=== PATIENT | female | born 1935 | race Asian ===

== ENCOUNTER 2017-04-28 06:55 | Day surgery (SDC) | payer MEDICARE, OTHER ==
[~2017-04-28] VITALS: Ht 148.6 cm; Wt 47.7 kg
[~2017-04-28 06:55] MED LIST: ALEN10 PO; ASPI81 PO; ATOR10TA84 PO; METF500T4 PO; OS500 PO; VALS160T2 PO; VITAD400 PO
[2017-04-28] MEDS ORDERED: HYALURONATE SODIUM 12 MG/ML 0.8 ML SYRINGE IO ONE (06:56)
[2017-04-28] MEDS ORDERED: TETRACAINE HCL VISCOUS 0.5% 5 ML OPHTHALMIC SOLUTION OS ONE (06:56)
[2017-04-28] MEDS ORDERED: DEXAMETHASONE SOD PHOS 4 MG/ML VIAL IVP ONE (06:56)
[2017-04-28] MEDS ORDERED: MIDAZOLAM HCL 2 MG/2 ML VIAL IVP ONE (06:56)
[2017-04-28] MEDS ORDERED: FentaNYL CITRATE-PF 100 MCG/2 ML VIAL IVP ONE (06:56)
[2017-04-28] MEDS ORDERED: EPINEPHrine 1:1,000 [1 MG/ML] AMP IM ONE (06:56)
[2017-04-28] MEDS ORDERED: POVIDONE-IODINE 10% 15 ML SOLUTION UD TP ONE (06:56)
[2017-04-28] MEDS ORDERED: HYALURONATE SOD/CHONDROITIN SOD 0.5 ML VIAL IO ONE (06:56)
[2017-04-28] MEDS ORDERED: MOXIFLOXACIN HCL 0.5% 3 ML OPHTHALMIC SOLUTION OS ONE (07:00)
[2017-04-28] MEDS ORDERED: RINGERS SOLUTION,LACTATED 500 ML IV ONE ×3 (07:00→07:01)
[2017-04-28] MEDS ORDERED: DICLOFENAC SODIUM 0.1% 2.5 ML OPHTHALMIC SOLUTION OS ONE (07:00)
[2017-04-28] MEDS ORDERED: PHENYLEPHRINE HCL 2.5% 2 ML OPHTHALMIC SOLUTION OS SCH (07:30)
[2017-04-28] MEDS ORDERED: TROPICAMIDE 1% 2 ML OPHTHALMIC SOLUTION OS SCH (07:30)
[2017-04-28] MEDS ORDERED: TROPICAMIDE 1% 2 ML OPHTHALMIC SOLUTION ONE (07:48)
[2017-04-28] MEDS ORDERED: DICLOFENAC SODIUM 0.1% 2.5 ML OPHTHALMIC SOLUTION ONE (07:48)
[2017-04-28] MEDS ORDERED: MOXIFLOXACIN HCL 0.5% 3 ML OPHTHALMIC SOLUTION ONE (07:48)
[2017-04-28] MEDS ORDERED: PHENYLEPHRINE HCL 2.5% 2 ML OPHTHALMIC SOLUTION ONE (07:48)
[2017-04-28] MEDS: PHENYLEPHRINE HCL 2.5% 2 ML OPHTHALMIC SOLUTION OS SCH ×2 (07:57→08:08)
[2017-04-28] MEDS: TROPICAMIDE 1% 2 ML OPHTHALMIC SOLUTION OS SCH ×2 (07:57→08:08)
[2017-04-28 08:02] LABS: GLUCOSE,POINT OF CARE 106 MG/DL (70-110)
== END 2017-04-28 10:50 | disposition home or self-care (01) ==
LOC: SURGERY 06:55
PROVIDERS: ATTEND Specialist
DX: E11.36 Type 2 diabetes mellitus with diabetic cataract (principal); H25.012 Cortical age-related cataract, left eye; E11.39 Type 2 diabetes mellitus with other diabetic ophthalmic complication; H40.9 Unspecified glaucoma; M19.90 Unspecified osteoarthritis, unspecified site; E78.5 Hyperlipidemia, unspecified; M10.9 Gout, unspecified; Z79.01 Long term (current) use of anticoagulants
CPT/HCPCS: 82962; 93005; J0171; J1100; J2250; J3010; J3490; J7120